=== PATIENT | male | born 1970 | race Caucasian/White ===

== ENCOUNTER 2019-07-19 12:56 | Emergency (ER) | payer MEDICAID, OTHER ==
[~2019-07-19] VITALS: Ht 177.8 cm; Wt 72.8 kg
[2019-07-19] MEDS ORDERED: normal saline 1000ML IV soln IVB ONE (13:35)
[2019-07-19] MEDS ORDERED: morphine 4 MG/ML inj SYRINge IV PRN (13:35)
[2019-07-19] MEDS ORDERED: ondansetron/PF 4mg/2ml inj IV ONE (13:35)
[2019-07-19 13:56] LABS: BASOPHILS # (AUTO) 0.1 X10'3 (0-0.2); BASOPHILS % (AUTO) 0.5 % (0-1); EOSINOPHILS % (AUTO) 0.1 % (0-6); HEMATOCRIT 43.1 % (42.0-52.0); HEMOGLOBIN 15.1 g/dl (14.0-17.9); LYMPHOCYTES # (AUTO) 0.9 X10'3 (1.1-4.8); LYMPHOCYTES % (AUTO) 9.3 % (21-51); MEAN CORPUSCULAR HEMOGLOBIN 30.4 PG (27.0-31.0); MEAN CORPUSCULAR VOLUME 86.8 FL (78-98); MEAN PLATELET VOLUME 7.6 FL (7.4-10.4); MONOCYTES # (AUTO) 0.3 X10'3 (0-0.9); MONOCYTES % (AUTO) 2.8 % (2-12); NEUTROPHILS # (AUTO) 8.7 X10'3 (1.8-7.7); NEUTROPHILS % (AUTO) 87.3 % (42-75); PLATELET COUNT 264 X10'3 (140-440); RED BLOOD COUNT 4.96 X10'6 (4.70-6.10); RED CELL DISTRIBUTION WIDTH 13.4 % (11.5-14.5); WHITE BLOOD COUNT 9.9 X10'3 (4.5-11.0)
[2019-07-19 14:03] VITALS: BP 135/78
[2019-07-19 14:11] LABS: ALANINE AMINOTRANSFERASE 41 U/L (12-78); ALBUMIN 4.6 G/DL (3.4-5.0); ALBUMIN/GLOBULIN RATIO 1.4 (1.1-1.5); ALKALINE PHOSPHATASE 73 IU/L (46-116); ANION GAP 9 (8-16); ASPARTATE AMINO TRANSFERASE 18 U/L (10-37); BILIRUBIN,TOTAL 0.5 MG/DL (0.1-1.0); BLOOD UREA NITROGEN 11 MG/DL (7-18); BUN/CREATININE RATIO 17.2 (5.4-32.0); CALCIUM 9.2 MG/DL (8.5-10.1); CHLORIDE 99 MMOL/L (99-107); CREATININE 0.64 MG/DL (0.60-1.10); GLUCOSE 129 MG/DL (70-104); LIPASE 110 U/L (73-393); POTASSIUM 4.6 MMOL/L (3.5-5.1); SODIUM 132 MMOL/L (135-145); TOTAL CARBON DIOXIDE 23.9 MMOL/L (24-32); TOTAL PROTEIN 7.8 G/DL (6.4-8.2); eGFR > 90 ML/MIN
== END 2019-07-19 16:05 | disposition home or self-care (01) ==
LOC: ER 12:56
DX: R06.02 Shortness of breath (principal); R11.2 Nausea with vomiting, unspecified; R10.10 Upper abdominal pain, unspecified; F12.90 Cannabis use, unspecified, uncomplicated
CPT/HCPCS: 36415; 71045; 80053; 83690; 85025; 93005; 96361; 96374; 96375; 99284; J2270; J2405; J7030

== ENCOUNTER 2022-07-04 09:53 | Day surgery (SDC) | payer MEDICAID ==
[2022-06-27 12:01] LABS: BASOPHILS # (AUTO) 0.1 X10'3 (0-0.2); BASOPHILS % (AUTO) 1.4 % (0-1); EOSINOPHILS # (AUTO) 0.5 X10'3 (0-0.9); EOSINOPHILS % (AUTO) 5.6 % (0-6); LYMPHOCYTES # (AUTO) 2.8 X10'3 (1.1-4.8); LYMPHOCYTES % (AUTO) 33.8 % (21-51); MEAN CORPUSCULAR HEMOGLOBIN 29.5 PG (27.0-31.0); MEAN CORPUSCULAR HGB CONC 33.5 g/dL (33.0-36.5); MEAN CORPUSCULAR VOLUME 88.1 FL (78-98); MEAN PLATELET VOLUME 7.4 FL (7.4-10.4); MONOCYTES # (AUTO) 0.7 X10'3 (0-0.9); MONOCYTES % (AUTO) 8.6 % (2-12); NEUTROPHILS # (AUTO) 4.2 X10'3 (1.8-7.7); NEUTROPHILS % (AUTO) 50.6 % (42-75); PRE OP HEMATOCRIT 43.6 % (42.0-52.0); PRE OP HEMOGLOBIN 14.6 g/dL (14.0-17.9); PRE OP PLATELET COUNT 269 X10'3 (140-440); RED BLOOD COUNT 4.95 X10'6 (4.70-6.10); RED CELL DISTRIBUTION WIDTH 13.9 % (11.5-14.5)
[2022-06-27 12:17] LABS: ALBUMIN 4.4 G/DL (3.4-5.0); ALBUMIN/GLOBULIN RATIO 1.3 (1.1-1.5); ALKALINE PHOSPHATASE 70 IU/L (46-116); BLOOD UREA NITROGEN 9 MG/DL (7-18); BUN/CREATININE RATIO 14.5 (5.4-32.0); CALCIUM 9.3 MG/DL (8.5-10.1); CHLORIDE 100 MMOL/L (99-107); CREATININE 0.62 MG/DL (0.60-1.10); PRE OP ALT 62 U/L (30-65); PRE OP ANION GAP 7 (8-16); PRE OP AST 32 U/L (10-37); PRE OP BILIRUB, TOTAL 0.5 MG/DL (0.0-1.0); PRE OP GLUCOSE 102 MG/DL (70-104); PRE OP POTASSIUM 4.9 MMOL/L (3.4-5.1); PRE OP SODIUM 133 MMOL/L (135-145); TOTAL CARBON DIOXIDE 25.7 MMOL/L (24-32); TOTAL PROTEIN 7.7 G/DL (6.4-8.2); eGFR > 90 ML/MIN
[~2022-07-04] VITALS: Ht 177.8 cm; Wt 72.2 kg
[2022-07-04] VITALS (10 sets, daily range): BP systolic 112–149; BP diastolic 69–94
[~2022-07-04 09:53] MED LIST: ACET-1025 PO; NAPR-56 PO; albuterol 2.5 MG/3 ML nebule NEB ONE; ceFAZolin inj. 2,000 MG in dextrose 5%-water 100 ML IV ONE; famotidine 20mg tablet PO ONE; ringers solution, lacted 1,000 ML IV SCH
[2022-07-04] MEDS ORDERED: LIDOcaine 1% 30ml preserv. free vial ONE (11:24)
[2022-07-04] MEDS ORDERED: BUPIVAcaine/PF 2.5 mg/ml (0.25%) 30ml vial ONE (11:24)
[2022-07-04] MEDS ORDERED: fentaNYL/PF 50MCG/1 ML 2ML syringe ONE (11:39)
[2022-07-04] MEDS ORDERED: midazolam 1 mg/ML 2ml injection ONE (11:39)
[2022-07-04] MEDS ORDERED: LIDOcaine 2% (20mg/ml) 5ml vial ONE (12:03)
[2022-07-04] MEDS ORDERED: rocuronium 10mg/ml inj IV ONE (12:03)
[2022-07-04] MEDS ORDERED: propofol inj 20 ML IV ONE (12:03)
[2022-07-04] MEDS ORDERED: dexamethasone sod phosphate 4mg/ml inj. ONE (12:03)
[2022-07-04] MEDS ORDERED: acetaminophen 1,000mg/100ml IV 100 ML IV ONE (12:03)
[2022-07-04] MEDS ORDERED: ondansetron/PF 4mg/2ml inj ONE (12:03)
[2022-07-04] MEDS ORDERED: meperidine/PF 25mg/ml syringe ONE ×2 (12:49→12:57)
[2022-07-04] MEDS ORDERED: HYDROcodone/acetaminophen 5mg/325mg tablet PO PRN (13:00)
[2022-07-04] MEDS ORDERED: morphine 4 MG/ML inj SYRINge IV PRN (13:10)
[2022-07-04] MEDS ORDERED: ondansetron/PF 4mg/2ml inj IV PRN (13:10)
[2022-07-04] MEDS ORDERED: ringers solution, lacted 1,000 ML IV SCH (13:10)
[2022-07-04] MEDS ORDERED: meperidine/PF 25mg/ml syringe IV PRN ×3 (13:10)
[2022-07-04] MEDS ORDERED: proCHLORperazine 10 MG/2 ml inj IV PRN (13:10)
[2022-07-04] MEDS ORDERED: morphine 2 MG/ML inj. syringe IV PRN (13:10)
--- NOTE | 2022-07-04 14:21 | NUR ---
I HAVE REVIEWED D/C INSTRUCTIONS WITH PATIENT AND THEY HAVE VERBALIZED UNDERSTANDING OF INSTRUCTIONS. PATIENT D/C HOME WITH ALL BELONGINGS AND FAMILY GAVE TRANSPORT. PT VOIDED 220 ML'S BEFORE D/C Addendum: 07/04/22 at 1438 by Jesika Wood RN Amended: Links added.
== END 2022-07-04 14:21 | disposition home or self-care (01) ==
LOC: PAS 09:53
PROVIDERS: ATTEND Surgery
DX: K40.90 Unilateral inguinal hernia, without obstruction or gangrene, not specified as recurrent (principal); Z79.899 Other long term (current) drug therapy; Z87.891 Personal history of nicotine dependence; Z98.890 Other specified postprocedural states
CPT/HCPCS: 36415; 49650; 71046; 80053; 82948; 85025; 93005; C1781; J0131; J0690; J1100; J2175; J2250; J2405; J2704; J3010; J3490; J7030; J7060; J7120; S2900; Z7506; Z7508; Z7512; A4215; A4618

== ENCOUNTER 2025-02-23 10:45 | Emergency (ER) | payer MEDICAID ==
[~2025-02-23] VITALS: Ht 172.7 cm; Wt 71.7 kg
[~2025-02-23 10:45] MED LIST changes: -albuterol 2.5 MG/3 ML nebule NEB ONE; -ceFAZolin inj. 2,000 MG in dextrose 5%-water 100 ML IV ONE; -famotidine 20mg tablet PO ONE; -ringers solution, lacted 1,000 ML IV SCH
[2025-02-23 10:53] VITALS: TEMP 97.8
--- NOTE | 2025-02-23 11:20 | RADIOLOGY REPORT ---
CHEST RADIOGRAPH Indication: CP Technique: Single frontal view of the chest was obtained COMPARISON: None FINDINGS: Lines and Tubes: None Lungs: Clear Pleura: No effusion. No pneumothorax. Cardiomediastinal contours: Unremarkable Bones: Unremarkable IMPRESSION: No acute disease.
[2025-02-23 11:21] LABS: MEAN PLATELET VOLUME 8.2 FL (7.4-10.4); RED CELL DISTRIBUTION WIDTH 13.8 % (11.5-14.5)
--- NOTE | 2025-02-23 11:24 | ELECTROCARDIOGRAPH REPORT ---
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
[2025-02-23 11:42] LABS: CREATININE 0.49 MG/DL (0.60-1.10); PRO BRAIN NATRIURETIC PEPTIDE 159 PG/ML (0-125); TOTAL CARBON DIOXIDE 21.0 MMOL/L (24-32); eCRCL 161 ML/MIN; eGFR > 90 ML/MIN
--- NOTE | 2025-02-23 12:41 | Physician Documentation ---
History of Present Illness General Chief Complaint: Shortness of Breath Stated Complaint: TROUBLE BREATHING Time Seen by MD: 12:26 [facility] Mode of Arrival: POV History of Present Illness Initial Comments The patient is a 55-year-old male with no prior medical history who developed chest pain last night. The pain is central radiating to his back and worse with breathing. Medication Reconciliation Allergies: Coded Allergies: No Known Allergies (Unverified , 02/23/25) Scheduled PRN Acetaminophen (Tylenol Extra Strength), 2 TAB PO TID PRN PRN for pain or fever, (Reported) Naproxen (Naproxen), Unknown Dose PO DAILY PRN for pain, (Reported) Past Medical History Past Medical History: No Pertinent History Past Surgical History: noncontributory Alcohol Use: None Drug Use: marijuana Lives with: Family Lives In: Home Occupation: employed Review of Systems ROS Constitutional: Denies chills, fatigue, fever, weight gain or weight loss. HEENT: Denies hearing loss, sinus pressure or visual changes. Respiratory: Denies cough, shortness of breath or wheezing. Cardiovascular: Chest pain. Gastrointestinal: Denies abdominal pain, blood in stool, constipation, diarrhea, heartburn, loss of appetite, nausea or vomiting. Genitourinary: Denies painful urination (dysuria), excessive amount of urine (polyuria) or urinary frequency. Metabolic/Endocrine: Denies cold intolerance, heat intolerance, excessive thirst (polydipsia) or excessive hunger (polyphagia). Neurological: Denies dizziness, extremity numbness, extremity weakness, headaches, seizures or tremors. Psychiatric: Denies anxiety or depression. Integumentary: Denies breast discharge, breast lump, hives, mole change(s), rash or skin lesion. Musculoskeletal: Denies back pain, joint pain, joint swelling or neck pain. Hematologic: Denies easily bleeding, easily bruises, lymphedema or issues with blood clots. Immunologic: Denies food allergies or seasonal allergies. Physical Exam Physical Exam Vital Signs: Temperature: 97.8, Source: Temporal, Heart Rate: 63, Respiratory Rate: 18, BP: 172/107, Pulse Oximetry: 100, Weight: 71.700 Physical Exam Physical Exam Vitals and nursing note reviewed. Constitutional: General: Patient is awake, alert, oriented x 4 in no acute distress and well appearing. Speech is clear and lucid. Appearance: Normal appearance. Patient is not ill-appearing, toxic-appearing or diaphoretic. HENT: Head: Normocephalic and atraumatic. Mouth/Throat: Mouth: Mucous membranes are moist. Pharynx: Oropharynx is clear. Eyes: General: No scleral icterus. Extraocular Movements: Extraocular movements intact. Pupils: Pupils are equal, round, and reactive to light. Neck: Supple, no Kernig or Brudzinski sign. Cardiovascular: Rate and Rhythm: Normal rate and regular rhythm. Heart sounds: No murmur heard. Pulmonary: Effort: No respiratory distress. Breath sounds: No wheezing, rhonchi or rales. Abdominal: General: There is no distension. Palpations: There is no fluid wave, hepatomegaly or mass. Tenderness: There is no abdominal tenderness. There is no guarding. Musculoskeletal: General: No swelling or deformity. Skin: Coloration: Skin is not jaundiced. Findings: No erythema or rash. Neurological: Mental Status: Patient is alert. Progress Results/Orders Results/Orders Orders - MICHAEL REYNOSO MD Chest,Single View (02/23/25 10:56) Monitor (02/23/25 10:56) Saline Lock (02/23/25 10:56) Oxygen (02/23/25 10:56) Cta Aorta Disection (02/23/25 13:08) Completed Orders - MICHAEL REYNOSO MD Chest,Single View (02/23/25 10:56) Cbc/Diff (02/23/25 10:56) BMP (02/23/25 10:56) PBNP (02/23/25 10:56) Electrocardiogram (02/23/25 10:56) Hs Troponin I W Calculations (02/23/25 10:56) Hs Troponin I W Calculations (02/23/25 12:56) Hs Troponin I W Calculations (02/23/25 13:56) Cta Aorta Disection (02/23/25 13:08) Iohexol 350mg/Ml 100ml (Omnipaque 350mg/ (02/23/25 12:49) Lipase (02/23/25 10:51) Mag & Alum Hydrox/Simeth Susp (Maalox Or (02/23/25 13:30) Lidocaine 2% Viscous (Xylocaine 2% Visco (02/23/25 13:30) Medications Received in ER Medications (Trade) Dose Ordered Sig/Danish Route PRN Reason Start Time Stop Time Status Last Admin Dose Admin (Maalox oral suspension) 30 ml ONCE ONCE PO 02/23/25 13:30 02/23/25 13:33 DC 02/23/25 14:03 30 ML (Xylocaine 2% Viscous 15mL cup) 20 ml ONCE ONCE MM 02/23/25 13:30 02/23/25 13:33 DC 02/23/25 14:03 20 ML Vital Signs 02/23/25 02/23/25 02/23/25 02/23/25 10:53 11:18 14:06 16:07 Temp 97.8 Pulse 63 62 61 Resp 18 18 22 20 B/P (MAP) 172/107 164/100 (121) 146/87 (106) Pulse Ox 100 100 99 O2 Flow Rate 0 0 Laboratory Tests Test 02/23/25 10:51 02/23/25 12:56 02/23/25 14:17 White Blood Count 9.1 Red Blood Count 4.87 Hemoglobin 14.5 Hematocrit 42.8 Mean Corpuscular Volume 87.9 Mean Corpuscular Hemoglobin 29.7 Mean Corpuscular Hemoglobin Concent 33.8 Red Cell Distribution Width 13.8 Platelet Count 253 Mean Platelet Volume 8.2 Neutrophils (%) (Auto) 87.0 H Lymphocytes (%) (Auto) 9.4 L Monocytes (%) (Auto) 2.6 Eosinophils (%) (Auto) 0.1 Basophils (%) (Auto) 0.9 Neutrophils # (Auto) 7.9 H Lymphocytes # (Auto) 0.9 L Monocytes # (Auto) 0.2 Eosinophils # (Auto) 0.0 Basophils # (Auto) 0.1 CBC Comment Sodium Level 133 L Potassium Level 3.9 Chloride Level 100 Carbon Dioxide Level 21.0 L Anion Gap 12 Blood Urea Nitrogen 11 Creatinine 0.49 L Estimated GFR/1.73 m2 > 90 BUN/Creatinine Ratio 22.4 H Glucose Level 151 H Calcium Level 9.1 Troponin I High Sensitivity 5 5 5 Pro-B-Type Natriuretic Peptide 159 H Albumin 4.4 Lipase 36 Chemistry Comments Troponin I High Sens Percent Delta 0 0 Troponin I Hi Sens Absolute Change 0 0 Medical Decision Making Findings EKG medically necessary in the evaluation of chest pain and interpreted by me at the time of patient evaluation. Rhythm is sinus bradycardia with a rate of 59, old inferior infarct, LVH. Impression: Abnormal EKG. Laboratory data and CTA chest who are reassuring. I did give patient a GI cocktail that he reportedly benefitted from. I am going to start him on a PPI and have him follow-up with his PCP. Departure Disposition: HOME / SELF CARE / HOMELESS Impression: Primary Impression: Chest pain with low risk for cardiac etiology Additional Impression: Gastritis Condition: Improved Additional Instructions: It is important to see your doctor or primary care provider. Emergency care may be incomplete without proper follow-up. Symptoms sometimes change or new symptoms might arise after you leave the emergency department. It is important that you call your doctor if you become worse in any way, or return to the emergency department. You are strongly urged to follow-up with your physician to assure complete and thorough care. Please call your doctor's office today, and informed them that you were seen in the emergency department, and that you need to be seen immediately for close follow-up. If you do not have a primary care doctor we encourage you to proactively seek a local physician for close follow-up. Consider local clinics, [facility] [place], or [place] [facility] [place] Prior to discharge we spoke at length concerning sym ptoms that would merit reevaluation, but please return to the emergency department for any symptoms that are concerning to you, and we will be happy to continue your evaluation and treatment. Please note you can always return to the emergency department if you are having difficulty coordinating close follow-up. If medications were prescribed, you should fill them at your local pharmacy immediately and take only as prescribed. Bring your new medications to your doctors follow-up visit to discuss any changes that would be necessary. Please check [employer] for any results you did not receive in the Emergency Department: often we are unable to get all your tests back before you leave, and these tests need to be reviewed by your PCP and yourself. You can also call Medical Records if you are unable to access the internet to see [employer]. Return to the emergency department immediately for worsening chest pain, difficulty breathing, sweating, or other concerning emergent symptoms. Referrals: NO PRIMARY CARE PROVIDER (PCP) Prescriptions Pantoprazole Sodium (PROTONIX tablet) 40 Mg Tablet.dr 1 TAB PO DAILY for 30 Days, #30 TAB 0 Refills Prov: MICHAEL REYNOSO MD 02/23/25 Education Educated: Patient Educated regarding: diagnosis, treatment, prognosis, need for follow up Signature Scribe Signature: . Attestation: . MICHAEL REYNOSO MD Feb 23, 2025 12:41
[2025-02-23] MEDS: mag hydrox/Alum hydrox/simeth 30ml oral suspension PO ONE (14:03)
[2025-02-23] MEDS: LIDOcaine 2% Viscous 15ml cup MM ONE (14:03)
--- NOTE | 2025-02-23 15:56 | RADIOLOGY REPORT ---
History: Chest pain Comparison: None TECHNIQUE: Volumetric data acquisition of chest, abdomen and pelvis was obtained following intravenou s administration of 100 ml omni 350 contrast without any reported adverse effects. Arterial phase ottoniel ging was performed. Axial images were obtained and additional sagittal and coronal images were reform atted. 3D/MIP images were performed and reviewed for reporting. Radiation dose Information: CT Dose: CTDI volume is 52 mGy. Dose-length product is 1005 mGy*cm Findings: Limited by motion. Vascular: Aortic measurements: Sinus of valsalva 31 mm, ST junction 26 mm, ascending aorta 35 mm, d escending aorta 25 mm, aortic hiatus 23 mm, suprarenal abdominal aorta 22 mm and infrarenal aorta 16 mm. There is normal caliber of thoracic and abdominal aorta without evidence of aortic dissection, intram ural hematoma or aneurysm. Visualized supra-aortic arteries are patent without a focal stenosis or a neurysm. The celiac, superior mesenteric, bilateral renal, iliac and femoral arteries are patent wit hout any focal stenosis or aneurysm. Chest: Pulmonary Arteries: There are no filling defects within main pulmonary arteries. There is norm al dimensional of main PA. Lungs: Less than 6 mm nodule left lower lung. Atelectasis and scarring in the lung bases. Lymph Nodes: There is no significant intrathoracic or axillary lymphadenopathy on CT size criteria. Lower Neck: Visualized portions of the thyroid gland are unremarkable. Mediastinum: Heart size is normal. There is no pericardial effusion. Musculoskeletal: No aggressive focal bony lesions, acute fractures or dislocation. Chest wall: Unremarkable Abdomen and Pelvis: Liver: Diffuse hepatic steatosis. Gallbladder and biliary Tree: Unremarkable Spleen: Unremarkable Pancreas: The pancreas is normal in appearance without focal lesions or abnormal enhancement. Adrenal Glands: Unremarkable Kidneys: Kidneys demonstrate normal symmetric enhancement without focal lesions, calculi or hydroneph rosis. Bladder: Unremarkable Bowel: The stomach is grossly normal in appearance. Small bowel and colon are normal in caliber and d istribution. The appendix appears normal. Ascites: Absent Lymphadenopathy: No mesenteric, retroperitoneal or periportal lymphadenopathy. Abdominal wall and Mesentery: Unremarkable. Pelvic Organs: Unremarkable Musculoskeletal: No aggressive focal bony lesions, acute fractures or dislocation. IMPRESSION: 1. No evidence of aortic aneurysm, dissection, or intramural hematoma. 2. Limited by motion, particularly in the abdomen. Less than 6 mm nodule in the left lower lung. Diff use hepatic steatosis. 3. All CT scans at this medical facility are performed using dose modulation techniques as appropriat e to a performed exam including the following: Automated exposure control was utilized; Adjustment of the MA And/or KV according to patient size; And use of iterative reconstruction technique. HS:Y
[2025-02-23] MEDS ORDERED: PANT-47 PO (16:52)
[2025-02-23 17:28] VITALS: BP 152/93; PULSE 76; RESP 16; O2SAT 96
[2025-02-23] MEDS: pantoprazole 40mg Tablet.DR PO SCH (17:37)
[2025-02-24] MEDS ORDERED: pantoprazole 40mg Tablet.DR PO SCH (07:30)
== END 2025-02-23 17:40 | disposition home or self-care (01) ==
LOC: ER 10:45
DX: R07.89 Other chest pain (principal); K29.70 Gastritis, unspecified, without bleeding; F12.90 Cannabis use, unspecified, uncomplicated
CPT/HCPCS: 36415; 71045; 71275; 74174; 80048; 83690; 83880; 84484; 85025; 93005; 99285; Q9967